=== PATIENT | female | born 1990 | race Two or more races ===

== ENCOUNTER 2020-07-27 20:13 | Emergency (ER) | payer SELFPAY ==
[~2020-07-27] VITALS: Ht 177.8 cm; Wt 117.9 kg
--- NOTE | 2020-07-27 20:15 | NUR ---
BIBRA 878 FOR C/O LLE PAIN S/P SLIP AND FALL WHILE HIKING; pt to bed 2; splint applied on lt leg [employer] c/o pain. pt aaox4, -sob, nad noted, pending er provider annalisa
[2020-07-27] MEDS ORDERED: HYDROMORPHONE 1 MG/1 ML DISP.SYRIN IV ONE ×2 (20:30→22:00)
[2020-07-27] MEDS ORDERED: TDAP [DIPH/PERTUSSIS/TET] 0.5 ML VIAL IM ONE ×2 (20:30→20:36)
[2020-07-27] MEDS ORDERED: ONDANSETRON HCL/PF 4 MG/2 ML VIAL IV ONE (20:30)
[2020-07-27] MEDS ORDERED: KETOROLAC TROMETHAMINE INJ 30 MG/ML VIAL IV ONE (20:30)
--- NOTE | 2020-07-27 20:32 | NUR ---
piv started blood drawn.
[2020-07-27] MEDS ORDERED: ONDANSETRON HCL/PF 4 MG/2 ML VIAL ONE (20:34)
[2020-07-27] MEDS ORDERED: KETOROLAC TROMETHAMINE INJ 30 MG/ML VIAL ONE (20:34)
[2020-07-27] MEDS ORDERED: HYDROMORPHONE 1 MG/1 ML DISP.SYRIN ONE ×2 (20:34→21:39)
[2020-07-27] MEDS ORDERED: HYDROCODONE/APAP 10/325MG TABLET PO ONE (22:00)
[2020-07-27] MEDS ORDERED: HYDROCODONE/APAP 10/325MG TABLET ONE (22:02)
--- NOTE | 2020-07-27 22:57 | NUR ---
Patient discharged to home in stable condition. Written and verbal after care instructions given. Patient verbalizes understanding of instruction. IV removed. Catheter intact and site benign. Pressure and 4x4 applied to site. No bleeding noted.
[2020-07-28 00:15] VITALS: BP 145/70
== END 2020-07-27 22:57 | disposition home or self-care (01) ==
LOC: ER 20:14
DX: S82.832A Other fracture of upper and lower end of left fibula, initial encounter for closed fracture (principal); S82.392A Other fracture of lower end of left tibia, initial encounter for closed fracture; S80.812A Abrasion, left lower leg, initial encounter; Z23 Encounter for immunization; W01.198A Fall on same level from slipping, tripping and stumbling with subsequent striking against other object, initial encounter; Y93.89 Activity, other specified; Y92.89 Other specified places as the place of occurrence of the external cause; Y99.8 Other external cause status
CPT/HCPCS: 29515; 73590; 73630; 90471; 90715; 96374; 96375; 96376; 99284; J1170 ×2; J1885; J2405